=== PATIENT | male | born 1965 | race Caucasian/White ===

== ENCOUNTER 2021-05-10 08:42 | Emergency (ER) | payer BC ==
[~2021-05-10] VITALS: Ht 177.8 cm; Wt 75.0 kg
[2021-05-10] MEDS ORDERED: NS 1,000 ML IV ONE (09:00)
[2021-05-10] MEDS ORDERED: LOSA25TA14 PO (09:01)
[2021-05-10] MEDS ORDERED: BOOSTRIX/ADACEL VACCINE (DIPHTH/PERTUSS/ACELL/TETANUS) 0.5ML SYR IM ONE (09:05)
[2021-05-10 09:17] LABS: BASO # 0.1 10^3/uL (0.0-0.2); BASO % 0.4 % (0.0-1.0); EOS # 0.2 10^3/uL (0.0-0.5); EOS % 1.5 % (0.0-3.0); HEMATOCRIT 45.9 % (42.0-52.0); HEMOGLOBIN 15.7 g/dl (13.5-17.5); LYMPH # 2.5 10^3/uL (1.5-5.0); LYMPH % 22.5 % (24.0-44.0); MEAN CORPUSCULAR HGB CONC 34.2 g/dl (32.0-36.5); MEAN CORPUSCULAR VOLUME 90.7 fl (80.0-96.0); MONO # 0.9 10^3/uL (0.0-0.8); NEUTROPHILS # 7.5 10^3/uL (1.5-8.5); NEUTROPHILS % 67.2 % (36.0-66.0); PLATELET COUNT, AUTOMATED 367 10^3/uL (150-450); RED BLOOD COUNT 5.06 10^6/uL (4.30-6.10); WHITE BLOOD COUNT 11.2 10^3/uL (4.0-10.0)
[2021-05-10 09:27] LABS: INR 0.94; PROTHROMBIN TIME 12.8 SECONDS (12.5-14.3)
[2021-05-10 09:28] LABS: PARTIAL THROMBOPLASTIN TIME 25.7 SECONDS (24.2-38.5)
[2021-05-10 09:57] LABS: ALBUMIN 3.8 GM/DL (3.2-5.2); ALT/SGPT 22 U/L (12-78); BILIRUBIN,DIRECT 0.2 MG/DL (0.0-0.2); BILIRUBIN,TOTAL 0.7 MG/DL (0.2-1.0); BLOOD UREA NITROGEN 6 MG/DL (7-18); CALCIUM LEVEL 8.5 MG/DL (8.5-10.1); CARBON DIOXIDE LEVEL 24 MEQ/L (21-32); CHLORIDE LEVEL 101 MEQ/L (98-107); CK-MB VALUE MASS 4.5 NG/ML (<3.6); CPK CREATINE PHOSPHOKINASE 291 U/L (39-308); ETHYL ALCOHOL (ETHANOL) 0.151 % (0.000-0.010); GLOMERULAR FILTRATION RATE > 60.0 (>56); GLUCOSE, FASTING 108 MG/DL (70-100); MB/CK RELATIVE INDEX 1.55 (< OR =4); POTASSIUM SERUM 4.4 MEQ/L (3.5-5.1); SODIUM LEVEL 135 MEQ/L (136-145); TOTAL PROTEIN 7.4 GM/DL (6.4-8.2); TROPONIN I < 0.02 NG/ML (< 0.10)
[2021-05-10] MEDS ORDERED: ISOVUE-370 76% 100ML VIAL As Ordered ONE (10:00)
--- NOTE | 2021-05-10 10:16 | REP ---
INDICATION: trauma COMPARISON: None. TECHNIQUE: Internal rotation, external rotation, and Y view. FINDINGS: Subtle irregularity at the distal aspect of the clavicle is nonspecific and may represent degenerative changes rather than small nondisplaced corner fracture. Correlation is required. The glenohumeral joint appears intact and normal. There is a minimally displaced fracture involving the lateral aspect left 5th and 6th ribs. No associated obvious contusion or pneumothorax. IMPRESSION: 1. Subtle irregularity at the distal aspect of the clavicle likely degenerative in nature and less likely small chip fracture. Correlation is required. 2. Minimally displaced lateral 5th and 6th rib fractures. <Electronically signed by Oseas Rico > 05/10/21 1012
--- NOTE | 2021-05-10 10:18 | REP ---
INDICATION: trauma COMPARISON: None. TECHNIQUE: AP and lateral left forearm. FINDINGS: No obvious acute fracture or dislocation is appreciated. There appears to be a small well corticated density adjacent to the ulnar styloid at the wrist which may reflect old injury and less likely acute fracture. IMPRESSION: No definite acute fracture or dislocation.. As above. <Electronically signed by Oseas Rico > 05/10/21 1013
--- NOTE | 2021-05-10 10:21 | REP ---
INDICATION: trauma COMPARISON: None. TECHNIQUE: AP, lateral, bilateral oblique views right and left hand. FINDINGS: Left hand demonstrates generalized age-related changes. There is a small well corticated old fracture fragment adjacent to the ulnar styloid. No obvious acute fracture or dislocation identified. Right hand demonstrates generalized age-related changes. No obvious acute fracture or dislocation identified. IMPRESSION: No obvious acute fracture or dislocation appreciated. <Electronically signed by Oseas Rico > 05/10/21 1017
--- NOTE | 2021-05-10 10:33 | REP ---
INDICATION: Trauma COMPARISON: None. TECHNIQUE: Axial noncontrast images from the skull base to the vertex with coronal reformations. This CT examination was performed using the following dose reduction techniques: Automated exposure control, adjustment of mA and/or kv according to the patient's size, and use of iterative reconstruction technique. FINDINGS: The ventricles, sulci, and cisterns are normal in position and appearance. Albright-white differentiation is maintained. No acute intracranial hemorrhage, mass/mass effect, pathology or trauma/injury. No evidence for acute infarction. No extra-axial fluid collection. Calvarium is intact. Paranasal sinuses and mastoid air cells are clear. IMPRESSION: Normal noncontrast head CT. No evidence for acute intracranial pathology or trauma/injury. <Electronically signed by Oseas Rico > 05/10/21 1023
--- NOTE | 2021-05-10 10:35 | REP ---
INDICATION: Trauma COMPARISON: None. TECHNIQUE: Axial noncontrast images from the skull base to the thoracic inlet with coronal and sagittal re-formations This CT examination was performed using the following dose reduction techniques: Automated exposure control, adjustment of mA and/or kv according to the patient's size, and use of iterative reconstruction technique. FINDINGS: Moderate/advanced multilevel degenerative changes include osteophytosis, endplate sclerosis, and disc space narrowing along with elements of facet hypertrophy. Alignment is maintained. There is no evidence for acute fracture/compression injury or subluxation. Spinal canal is patent. Posterior elements and spinous processes are intact. IMPRESSION: Normal noncontrast cervical spine CT. No evidence for acute pathology or trauma/injury. <Electronically signed by Oseas Rico > 05/10/21 [id number]
--- NOTE | 2021-05-10 10:37 | REP ---
INDICATION: Trauma. COMPARISON: None. TECHNIQUE: Helical scanning is acquired following the intravenous injection of 100 mL of Isovue 370. 3 mm axial images are generated. Coronal and sagittal MPR images are provided. 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 There is good opacification of the thoracic aorta and the pulmonary arterial tree. No mediastinal hematoma is seen. The aorta is normal in course caliber and contour. Thyroid lobes are normal as visualized. There is no evidence of pneumothorax or hemothorax. Subsegmental atelectatic changes are seen in the dependent portions of the lower lobes bilaterally. There is a sliding-type hiatal hernia noted at the gastroesophageal junction. Bone window settings reveal mildly displaced posterolateral fractures of the left 5th and 6th ribs. There is a nondisplaced fracture of the left 4th lateral rib. No other fracture is seen. Exam is otherwise unremarkable. IMPRESSION: 1. There are fractures of the left lateral 4th, 5th, and 6th ribs. The 5th and 6th rib fractures are mildly displaced. 2. Subsegmental dependent atelectatic changes are seen in the lower lobes bilaterally. 3. Sliding-type hiatal hernia. 4. Otherwise negative. <Electronically signed by Nestor Cat > 05/10/21 [id number]
--- NOTE | 2021-05-10 10:45 | REP ---
INDICATION: Trauma. COMPARISON: None. TECHNIQUE: Standard helical technique after the intravenous administration of 100 cc Isovue 370. FINDINGS: The liver, gallbladder, spleen, pancreas, adrenal glands, and kidneys are within normal limits. The abdominal aorta and para-aortic regions are within normal limits. The bowel loops and the mesenteries are within normal limits. There is a hiatal hernia. There is no free fluid or free air. There is no mass or adenopathy. For description of the lung bases see CT chest report also made today. Bone window technique throughout the examination shows a possible partially imaged fracture of the left 5th rib IMPRESSION: 1. Possible left 5th rib fracture minimally imaged. 2. No acute intra-abdominal or intrapelvic disease. <Electronically signed by Tim Choudhury > 05/10/21 [id number]
--- NOTE | 2021-05-10 11:51 | REPVR ---
PROCEDURE INFORMATION: Exam: CT Thoracic Spine Without Contrast Exam date and time: 05/10/2021 10:11 AM Age: 56 years old Clinical indication: Injury or trauma; Fall; Blunt trauma (contusions or hematomas) TECHNIQUE: Imaging protocol: Computed tomography images of the thoracic spine without contrast. Radiation optimization: All CT scans at this facility use at least one of these dose optimization techniques: automated exposure control; mA and/or kV adjustment per patient size (includes targeted exams where dose is matched to clinical indication); or iterative reconstruction. COMPARISON: CT Spine,cervical w/o contrast 05/10/2021 10:06 AM FINDINGS: Vertebrae: No evidence of thoracic spine fracture. Mild dextrocurvature of thoracic spine. Discs/Spinal canal/Neural foramina: No significant disc protrusion. No severe spinal canal stenosis. No significant neural foraminal narrowing. Other bones/joints: There are mildly displaced fractures of left posterolateral 5th and 6th ribs. Soft tissues: Unremarkable. Lungs: There are dependent and lower lobe pulmonary opacities. Please see report of chest CT. Mediastinum: There is hiatal hernia noted. IMPRESSION: Left rib fractures. No thoracic spine fracture. Electronically signed by: Carlota Cuellar On 05/10/2021 11:51:11 AM
--- NOTE | 2021-05-10 11:53 | REPVR ---
PROCEDURE INFORMATION: Exam: CT Lumbar Spine Without Contrast Exam date and time: 05/10/2021 10:11 AM Age: 56 years old Clinical indication: Injury or trauma; Fall; Blunt trauma (contusions or hematomas) TECHNIQUE: Imaging protocol: Computed tomography images of the lumbar spine without contrast. Radiation optimization: All CT scans at this facility use at least one of these dose optimization techniques: automated exposure control; mA and/or kV adjustment per patient size (includes targeted exams where dose is matched to clinical indication); or iterative reconstruction. COMPARISON: No relevant prior studies available. FINDINGS: Vertebrae: No acute fracture. Normal alignment. Discs/Spinal canal/Neural foramina: There are mild degenerative changes with disc bulging, mild marginal osteophytes, and facet degenerative changes greatest at L4-L5 and L5-S1. Soft tissues: Unremarkable. IMPRESSION: No acute fracture. Electronically signed by: Carlota Cuellar On 05/10/2021 11:53:15 AM
[2021-05-10 14:00] VITALS: BP 147/97
--- NOTE | 2021-05-11 10:48 | ECGEPIP ---
[facility] - ED Test Date: 2021-05-10 Pat Name: JAY GILL Department: Room: - Gender: Male Buyer Agent: LR : [id number] Requested By: BEBA Weeks Order Number: [id number] Reading MD: Nuvia Bryant Measurements Intervals [place] Rate: 96 P: 32 SD: 158 QRS: 18 QRSD: 70 T: 60 QT: 332 QTc: 419 Interpretive Statements Normal sinus rhythm baseline artifact may affect interpretation NSTTW abnormalities No prior Electronically Signed on 05-11-2021 10:47:52 EDT by Nuvia Bryant
== END 2021-05-10 14:32 | disposition home or self-care (01) ==
LOC: M ED 08:42
DX: S42.002A Fracture of unspecified part of left clavicle, initial encounter for closed fracture (principal); S22.42XA Multiple fractures of ribs, left side, initial encounter for closed fracture; W10.8XXA Fall (on) (from) other stairs and steps, initial encounter; Y92.89 Other specified places as the place of occurrence of the external cause; I10 Essential (primary) hypertension
CPT/HCPCS: 36415; 70450; 71260; 72125; 72128; 72131; 73030; 73090; 73130; 74177; 80048; 80076; 82077; 82550; 82553; 84484; 85025; 85610; 85730; 90471; 90715; 93005; 93041; 94760; 99285; Q9967